=== PATIENT | female | born 1935 | race Caucasian/White ===

== ENCOUNTER 2016-08-13 09:52 | Observation (INO) | payer MEDICARE, OTHER ==
[2016-08-13] MEDS ORDERED: cefTRIAXone SODIUM ADVANTAGE 1 GM in NORMAL SALINE ADD-VANTAGE 50 ML IV ONE (10:13)
[2016-08-13] MEDS ORDERED: 0.9 % SODIUM CHLORIDE 1,000 ML IV ONE ×2 (10:30→23:34)
[2016-08-13] MEDS ORDERED: 0.9 % SODIUM CHLORIDE 1,000 ML IV SCH (10:30)
[2016-08-13 10:35] LABS: BASOPHILS % 0.4 (0.0-1.5); EOSINOPHILS % 3.1 % (0.0-6.8); MEAN CORPUSCULAR HEMOGLOBIN 25.9 pg (28.0-34.0); MEAN CORPUSCULAR VOLUME 86.5 fl (80.0-100.0); MONOCYTES % 5.6 % (0.0-11.0); NEUTROPHILS # 4.8 # k/uL (1.4-7.7)
[2016-08-13] MEDS ORDERED: 0.9 % SODIUM CHLORIDE 50 ML IV ONE (10:51)
[2016-08-13] MEDS ORDERED: cefTRIAXone SODIUM 1 GM VIAL ONE (10:51)
[2016-08-13] MEDS ORDERED: ENOXAPARIN SODIUM 30 MG/0.3 ML DISP.SYRIN SQ SCH (13:30)
[2016-08-13] MEDS ORDERED: SIMVASTATIN 40 MG TABLET ONE (13:53)
[2016-08-13] MEDS ORDERED: ENOXAPARIN SODIUM 30 MG/0.3 ML DISP.SYRIN SQ ONE (13:53)
[2016-08-13] MEDS ORDERED: NAPROXEN 250 MG TABLET ONE ×2 (13:53→23:32)
[2016-08-13] MEDS ORDERED: ACETAMINOPHEN 325 MG TABLET ONE (13:53)
[2016-08-13] MEDS ORDERED: DOCUSATE SODIUM 100 MG CAPSULE ONE ×2 (13:53→23:32)
[2016-08-13] MEDS: 0.9 % SODIUM CHLORIDE 1,000 ML IV SCH (13:55)
[2016-08-13 14:06] VITALS: BMI 18.9
--- NOTE | 2016-08-13 15:54 | Diagnostic Imaging Report ---
[facility] [address] [facility] [address] [address] Report Submission Date: Aug 13, 2016 10:56:57 AM CDT Patient Study Name: CHANTEL ROCHA Date: Aug 13, 2016 10:25:22 AM CDT Modality Type: CR Gender: F Description: CHEST : 37 Institution: [facility] Physician DIMITRI VICKERS - ER EXAMINATION: Chest, one view. HISTORY: Dyspnea. FINDINGS: Comparison is made to exam dated 12/19/2015. The heart size is normal. The lungs are clear. There is no pleural effusion or pneumothorax identified. The osseous structures are unremarkable. IMPRESSION: No acute pulmonary disease. Electronically signed on Aug 13, 2016 10:56:57 AM CDT by: Guido LEACH
--- NOTE | 2016-08-13 17:50 | History and Physical Report ---
History of Present Illnes - History of Present Illness Reason for Visit: weakness History of Present Illness: Patient is an 81-year-old white female who over the last 2 to 3 days has developed a viral illness consisting of matting to her eyes bilaterally and upper respiratory symptoms. Patient has developed a productive pop up some clear to slightly white phelgm with no hemphysis noted. Patient has been running a low-grade fever up to 101. Patient states that she was not feeling well and had not been eating or drinking well. Patient denied any nausea vomiting. Recently the patient has had some pedal edema and has been on diuretic therapy for this. Patient is also decreased her oral intake to help with the pedal edema. Patient was subsequently brought to the ED for further evaluation and treatment. Patient was felt to be dehydrated and was subsequently admitted to the hospital for further care and evaluation. - Past Medical History Cardiac: HTN, Hyperlipidemia, Other (sick sinus syndrome) Pulmonary: Other (allergic rhinnitis) Gastrointestinal: Constipation Psych: Depression - Past Surgical History Past Surgical History: None - Past Family History Sister 1 Family History: Cancer (pancreatic), - Past Social History Smoke: No Alcohol: None Drugs: None Lives: Assisted Domestic Violence: Negative - Health Maintenance Health Maintenance: Cholesterol, Influenza Vaccine, Pneumococcal Vaccine Influenza Vaccine: Current for this Influenza Season Pneumonia Vaccine: Yes Resuscitation Status: Resusciation Status Resuscitation Status Do Not Resuscitate - Unable to Obtain History Unable to Obtain: No Review of Systems - Review of Systems Constitutional: Fever, Chills, Weakness. negative: Malaise Eyes: conjunctivae inflammation, redness. negative: pain, vision change ENT: negative: Ear Pain, Ear Discharge, Nose Pain, Nose Discharge, Nose Congestion, Mouth Pain, Mouth Swelling, Throat Swelling Respiratory: Cough, Shortness of Breath, SOB with Excertion, Sputum. negative: Dry, Hemoptysis, Pleuritic Pain Cardiovascular: negative: Chest Pain, Palpitations, Orthopnea, Paroxysmal Noc. Dyspnea, Edema, Light Headedness Gastrointestinal: negative: Nausea, Vomiting, Abdominal Pain, Diarrhea, Constipation (overnight) Genitourinary: negative: Dysuria, Frequency, Incontinence, Hematuria Musculoskeletal: negative: Shoulder Pain, Back Pain Skin: negative: Rash Neurological: Weakness (gemeralized). negative: Numbness, Incoordination, Confusion - Medications/Allergies Allergies/Adverse Reactions: Allergies Allergy/AdvReac Type Severity Reaction Status Date / Time diclofenac sodium Allergy Verified 08/13/16 10:02 [From [facility]] Home Medications: Home Medications Levofloxacin [Levaquin] 500 mg PO DAILY 08/13/16 Propylhexedrine [Benzedrex] 1 puff PINKY Q4 08/13/16 Current Inpatient Medications: Current Inpatient Medications Acetaminophen (Tylenol) 325 mg PO HS [facility] Acetaminophen (Tylenol Extra Strength) 500 mg PO DAILY [facility] Allopurinol (Zyloprim) 100 mg PO DAILY [facility] Aspirin (Ecotrin) 81 mg PO DAILY [facility] Bupropion HCl (Wellbutrin Sr) 75 mg PO DAILY [facility] Docusate Sodium (Colace) 100 mg PO BID [facility] Enoxaparin Sodium (Lovenox) 30 mg SQ QD [facility] Stop: 08/26/16 13:31 Last Admin: 08/13/16 13:55 Dose: 30 mg Hydrochlorothiazide (Hydrodiuril) 25 mg PO DAILY [facility] Sodium Chloride (Normal Saline) 1,000 mls @ 75 mls/hr IV Q10H [facility] Last Admin: 08/13/16 13:55 Dose: 75 mls/hr Losartan Potassium (Cozaar) 50 mg PO DAILY [facility] Naproxen (Naprosyn) 500 mg PO BID [facility] Pantoprazole Sodium (Protonix) 40 mg PO 0700 [facility] Polyethylene Glycol (Miralax) 17 gm PO DAILY [facility] Simvastatin (Zocor) 40 mg PO HS [facility] Exam - Exam Vital Signs: Vital Signs (72 hours) 08/13/16 08/13/16 08/13/16 12:38 13:00 13:30 Temperature 97.2 F L Pulse Rate [ 73 73 Left] Pulse Rate [ 73 Pulse ox] Respiratory 16 16 Rate Blood Pressure 152/74 [Left Arm] Blood Pressure 153/72 [Right Arm] O2 Sat by Pulse 97 96 97 Oximetry 08/13/16 14:00 Temperature 97.2 F L Pulse Rate [ 73 Left] Pulse Rate [ 73 Pulse ox] Respiratory Rate Blood Pressure 152/74 [Left Arm] Blood Pressure 153/72 [Right Arm] O2 Sat by Pulse 97 Oximetry General: Alert, Oriented to Person, Oriented to Place, Oriented to Time, Cooperative, Mild distress HEENT: Atraumatic, PERRLA, Nose Mucous membr. moist/Fowler, Hearing Grossly Normal. No: Mouth Mucous membr. moist/Fowler (dry), Pharyngeal Erythema Neck: No: Stridor, Rigidity (WNL) Carotids: WNL Thyroid: WNL Lungs: Speaks full Sentences, Rhonchi (course bilaterally) Cardiovascular: Regular rate, Normal S1, Normal S2, No murmurs Abdomen: Normal bowel sounds, Soft, No tenderness, No hepatospenomegaly, No masses Integumentary: Normal, Fowler, Warm Extremities: No clubbing, No cyanosis, No edema Neurological: Normal gait, Normal speech, Strength Equal Bilat, Normal tone, Sensation intact, Cranial nerves 3-12 NL, Reflexes 2+ Psych/Mental Status: Mental status NL, Mood NL, Appropriate Affect, Intact Judgment Assessment/Plan - Assessment/Plan (1) Dehydration Status: Acute Assessment: IV fluids with NS (2) Essential hypertension Status: Chronic Assessment: continue home med (3) Hypercholesteremia Status: Chronic Assessment: continue home med (4) Sick sinus syndrome Status: Chronic Assessment: monitor (5) Constipation by delayed colonic transit Status: Acute (6) Gout Status: Chronic Qualifiers: Gout site: unspecified site Presence of tophus: without tophus Assessment: continue home medication VTE Assessment - RISK FACTOR SCORE VTE RISK FACTOR SCORES: AGE OVER 60 YEARS, ANTICIPATED BED CONFINEMENT OR IMMOBILIZATION > 24 HOURS - RISK VTE MODERATE RISK: SCORE OF 2 (RISK PROXIMAL DVT 2-4%) PROPHYAXIS NEEDED
[2016-08-13] MEDS: NAPROXEN 250 MG TABLET PO SCH (20:10)
[2016-08-13] MEDS: DOCUSATE SODIUM 100 MG CAPSULE PO SCH (20:11)
[2016-08-13] MEDS ORDERED: ACETAMINOPHEN 325 MG TABLET PO SCH (21:00)
[2016-08-13] MEDS ORDERED: SIMVASTATIN 40 MG TABLET PO SCH (21:00)
[2016-08-13] MEDS ORDERED: buPROPion 150 MG TABLET.ER PO ONE (23:31)
[2016-08-13] MEDS ORDERED: PANTOPRAZOLE SODIUM 40 MG TABLET ONE (23:32)
[2016-08-13] MEDS ORDERED: HYDROCHLOROTHIAZIDE 25 MG TABLET PO ONE (23:32)
[2016-08-13] MEDS ORDERED: ACETAMINOPHEN 500 MG TABLET ONE (23:33)
[2016-08-13] MEDS ORDERED: ASPIRIN EC 81 MG TABLET.DR ONE (23:33)
[2016-08-13] MEDS ORDERED: ALLOPURINOL 100 MG TABLET ONE (23:33)
[2016-08-13] MEDS ORDERED: LOSARTAN POTASSIUM 50 MG TABLET PO ONE (23:33)
[2016-08-13] MEDS ORDERED: POLYETHYLENE GLYCOL 3350 17 GM POWD.PACK ONE (23:34)
[2016-08-14] MEDS ORDERED: SALINE FLUSH 10 ML DISP.SYRIN IVF ONE (02:34)
[2016-08-14] MEDS: 0.9 % SODIUM CHLORIDE 1,000 ML IV SCH ×3 (03:25→10:15)
[2016-08-14 05:16] LABS: APPEARANCE,URINE CLEAR (CLEAR); COLOR,URINE YELLOW (YELLOW); OCCULT BLOOD,URINE NEGATIVE (NEGATIVE); PH URINE 7.5 (5.0 - 8.0); UROBILINOGEN URINE 0.2 Eu (0.2-1.0)
[2016-08-14] MEDS ORDERED: PANTOPRAZOLE SODIUM 40 MG TABLET PO SCH (07:00)
[2016-08-14] MEDS: NAPROXEN 250 MG TABLET PO SCH (08:26)
[2016-08-14] MEDS: DOCUSATE SODIUM 100 MG CAPSULE PO SCH (08:27)
--- NOTE | 2016-08-14 08:32 | Discharge Summary ---
Discharge Summary - Discharge Sumary History of Present Illness: Patient is an 81-year-old white female who over the last 2 to 3 days has developed a viral illness consisting of matting to her eyes bilaterally and upper respiratory symptoms. Patient has developed a productive pop up some clear to slightly white phelgm with no hemphysis noted. Patient has been running a low-grade fever up to 101. Patient states that she was not feeling well and had not been eating or drinking well. Patient denied any nausea vomiting. Recently the patient has had some pedal edema and has been on diuretic therapy for this. Patient is also decreased her oral intake to help with the pedal edema. Patient was subsequently brought to the ED for further evaluation and treatment. Patient was felt to be dehydrated and was subsequently admitted to the hospital for further care and evaluation. Condition at Discharge: Stable Home Medications: Ambulatory Orders Medication Instructions Recorded Acetaminophen [Tylenol Extra 500 mg PO DAILY 04/15/14 Strength] Docusate Sodium [Colace] 100 mg PO BID 04/15/14 Polyethylene Glycol 3350 [Miralax] 17 gm PO DAILY 04/15/14 Aspirin [Aspir 81] 81 mg PO DAILY u2 07/15/16 Levofloxacin [Levaquin] 500 mg PO DAILY 08/13/16 Propylhexedrine [Benzedrex] 1 puff PINKY Q4 08/13/16 Hypromellose [Isopto Tears] 15 ml OP DIRECTED #15 ml 08/14/16 Consultations this Visit: None Procedures this Visit: None Allergies/Adverse Reactions: Allergies Allergy/AdvReac Type Severity Reaction Status Date / Time diclofenac sodium Allergy Verified 08/13/16 10:02 [From [facility]] Patient Problems: Current Active Problems Problem Status Onset Constipation by delayed colonic transit Acute Dehydration Acute Essential hypertension Chronic Gout Chronic Hypercholesteremia Chronic Sick sinus syndrome Chronic Discharge Summary: Patient was started on IV to his of normal saline. Patient urinary output did improve. BUN improved from 45 to 34 creatinine from 1.8 to 1.5. Patient respiratory illness appeared to be improving. Patient was able to maintain her O2 sats adequately on room air. Patient was maintained on antibiotic therapy. Patient's other medical problems remained stable Patient was subsequently transferred back to [facility] for further correction care. Patient was transferred in stable condition. - Final Diagnosis (1) Dehydration Problems: improved (2) Essential hypertension Problems: stable (3) Hypercholesteremia Problems: stable (4) Sick sinus syndrome Problems: stable (5) Constipation by delayed colonic transit Problems: stable (6) Gout Problems: stable
[2016-08-14] MEDS ORDERED: ALLOPURINOL 100 MG TABLET PO SCH (09:00)
[2016-08-14] MEDS ORDERED: POLYETHYLENE GLYCOL 3350 17 GM POWD.PACK PO SCH (09:00)
[2016-08-14] MEDS ORDERED: ACETAMINOPHEN 500 MG TABLET PO SCH (09:00)
[2016-08-14] MEDS ORDERED: LOSARTAN POTASSIUM 50 MG TABLET PO SCH (09:00)
[2016-08-14] MEDS ORDERED: HYDROCHLOROTHIAZIDE 25 MG TABLET PO SCH (09:00)
[2016-08-14] MEDS ORDERED: ASPIRIN EC 81 MG TABLET.DR PO SCH (09:00)
[2016-08-14] MEDS ORDERED: buPROPion 150 MG TABLET.ER PO SCH (09:00)
[2016-08-14 10:58] VITALS: BP 136/62
== END 2016-08-14 10:50 | disposition home or self-care (01) ==
LOC: ED 09:52 → SOUTH 12:17
PROVIDERS: ADMIT Family Medicine; ATTEND Family Medicine
DX: E86.0 Dehydration (principal); I10 Essential (primary) hypertension; E78.5 Hyperlipidemia, unspecified; I49.5 Sick sinus syndrome; K59.01 Slow transit constipation
CPT/HCPCS: 51701; 71010; 80048; 80053; 81002; 83605; 83880; 85025; 85610; 85730; 87040; 96361; 96365; 96367; 96375; 96376; 99284; J0696; J1650; G0378; J7030; S1016

== ENCOUNTER 2018-07-20 00:27 | Outpatient (CLI) | payer MEDICARE, OTHER ==
[2018-07-20 08:14] LABS: eGFR (Non-African) 22
== END 2018-07-20 00:30 ==
LOC: LAB 00:27
PROVIDERS: ATTEND Family Medicine
DX: I10 Essential (primary) hypertension (principal); E86.0 Dehydration; R62.7 Adult failure to thrive
CPT/HCPCS: 36415; 80048